=== PATIENT | female | born 1940 | race Caucasian/White ===

== ENCOUNTER → 2019-03-23 | Outpatient (CLI) | payer OTHER | END | disposition home or self-care (01) | LOC: CT 03-22 14:00 | DX: M19.012 Primary osteoarthritis, left shoulder (principal) ==

== ENCOUNTER → 2022-03-17 | Outpatient (CLI) | payer OTHER ==
[~2022-03-17] MED LIST: BENZTROPINE MESY1 MG PO; CALTRATE 600 +1 EAC1 PO; CELEXA20 MG PO; CHOLESTYRAMINE P4 GM PO; CIPRO500 MG PO; DILTIAZEM 24HR180 MG PO; DONEPEZIL HCL10 MG PO; DULOXETINE HCL30 MG PO; ELIQUIS5 M1 PO; FEXOFENADINE H180 M1 PO; FUROSEMIDE40 MG PO; HYDROCODONE-AC1 EAC1 PO; KLONOPIN2 M1 PO; MAGNESIUM400 M1 PO; METHENAMINE HIPP1 G1 PO; MUCINEX ER600 MG PO; OMEPRAZOLE40 MG PO; PERPHENAZINE4 M1 PO; PREDNISONE10 MG PO; SSD25 GM T; ZITHROMAX TRI-500 M1 PO
== END | disposition home or self-care (01) ==
LOC: ORTHO 02:00
PROVIDERS: ATTEND Orthopaedic Surgery
DX: S42.215D Unspecified nondisplaced fracture of surgical neck of left humerus, subsequent encounter for fracture with routine healing (principal); X58.XXXD Exposure to other specified factors, subsequent encounter

== ENCOUNTER 2023-05-14 11:30 | Inpatient (IN) | payer OTHER ==
[~2023-05-14] VITALS: Ht 157.5 cm; Wt 57.8 kg
[~2023-05-14 11:30] MED LIST changes: +ARICEPT10 M1 PO; +BENZTROPINE MESY2 MG PO; +CARDIZEM LA180 MG PO; +CLONAZEPAM1 MG PO; +CYMBALTA60 MG PO; +ELIQUIS2.5 M1 PO; +IRON325 M1 PO; +K-TAB20 MEQ PO; +LANTUS SOL100 UNIT/1 SC; +LASIX80 MG PO; +METHENAMINE MAND1 G2 PO; +PROTONIX40 MG PO; +VITAMIN B121000 MC1 PO; +VITAMIN D350 MCG PO; +VITAMIN E400 UNIT PO
[2023-05-14 16:00] VITALS: BP 107/46
[2023-05-14 20:00] VITALS: BP 122/86
[2023-05-15] VITALS: BP 115/57
[2023-05-15 08:00] VITALS: BP 96/53
[2023-05-15 10:23] LABS: ALKALINE PHOSPHATASE 109 U/L (46-116); BUN 22 mg/dl (9-23); CHLORIDE 107 mmol/L (98-107); SGPT/ALT 24 U/L (5-49); TOTAL PROTEIN 6.5 gm/dL (6.0-8.0)
[2023-05-15 12:00] VITALS: BP 106/73
[2023-05-15 16:00] VITALS: BP 117/55
[2023-05-15 20:00] VITALS: BP 106/76
[2023-05-16] VITALS: BP 116/83
[2023-05-16 08:00] VITALS: BP 135/69
[2023-05-16 11:49] VITALS: BP 131/96
[2023-05-16 16:00] VITALS: BP 115/91
[2023-05-16 20:00] VITALS: BP 113/59
[2023-05-17] VITALS: BP 122/48
[2023-05-17 06:39] LABS: BASO # 0.1 10*3/uL (0.0-0.1); BASO % 1.1 % (0.0-1.0); EOS # 0.2 10*3/uL (0.0-0.4); EOS % 2.5 % (1.0-4.0); HEMATOCRIT 33.3 % (37.0-47.0); LYMPH % 24.8 % (27.0-41.0); MEAN CORPUSCULAR HGB 28.7 pg (27.0-31.0); MEAN CORPUSCULAR HGB CONC 31.5 g/dl (33.0-37.0); MEAN PLATELET VOLUME 11.8 fl (9.6-12.3); MONO # 0.5 10*3/uL (0.1-1.0); NEUT # 5.3 10*3/uL (2.3-7.9); NEUT % 65.4 % (47.0-73.0); PLATELET COUNT AUTOMATED 315 10*3/uL (130-400); RED BLOOD COUNT 3.66 10*6/uL (4.10-5.10); RED CELL DISTRI WIDTH 16.9 % (0-14.5); WHITE BLOOD COUNT 8.1 10*3/uL (4.8-10.8)
[2023-05-17 08:00] VITALS: BP 130/69
[2023-05-17 12:00] VITALS: BP 122/67
== END 2023-05-17 14:15 | disposition hospice, home (50) | DRG 178 ==
LOC: 5E 11:30
PROVIDERS: Internal Medicine Critical Care Medicine; ADMIT Internal Medicine; ATTEND Internal Medicine
DX: J69.0 Pneumonitis due to inhalation of food and vomit (principal); I48.21 Permanent atrial fibrillation; F02.80 Dementia in other diseases classified elsewhere, unspecified severity, without behavioral disturbance, psychotic disturbance, mood disturbance, and anxiety; K21.9 Gastro-esophageal reflux disease without esophagitis; J44.9 Chronic obstructive pulmonary disease, unspecified; R62.7 Adult failure to thrive; G30.1 Alzheimer's disease with late onset; J15.5 Pneumonia due to Escherichia coli; Z68.23 Body mass index [BMI] 23.0-23.9, adult; Z66 Do not resuscitate; Z51.5 Encounter for palliative care

== ENCOUNTER → 2024-04-11 | Outpatient (CLI) | payer OTHER | END | disposition home or self-care (01) | LOC: ORTHO 00:28 | PROVIDERS: ATTEND Orthopaedic Surgery | DX: M89.8X1 Other specified disorders of bone, shoulder (principal); M25.512 Pain in left shoulder ==

== ENCOUNTER 2024-07-02 01:44 | Inpatient (IN) | payer OTHER ==
[~2024-07-02] VITALS: Ht 154.9 cm; Wt 54.2 kg
[~2024-07-02 01:44] MED LIST changes: +ACETAMINOPHEN650 M5 PO; +ALEVE ARTHRITI100 GM T; +ARTHRITIS PAIN150 G1 T; +ATIVAN0.5 MG PO; +CRANBERRY500 M2 PO; +CURCUMIN PHYTO500 MG PO; +DILTIAZEM HYDR180 M2 PO; +INCRUSE ELLI62.5 MCG INH; +KAPSPARGO SPRIN25 MG PO; +KLONOPIN1 M1 PO; +LASIX40 MG PO; +MARINOL PO; +METOPROLOL SUCC50 M1 PO; +NAMENDA-5 PO; +PANTOPRAZOLE SO40 MG PO; +VENT7GM INH; +VIBRA-TAB100 MG PO; +VITAMIN B12500 MC2 PO
[2024-07-02] MEDS ORDERED: ACETAMINOPHEN 650 MG SUPP R PRN ×2 (02:05→02:25)
[2024-07-02] MEDS ORDERED: Ondansetron Hydrochloride 4 MG/2 ML VIAL IV PRN (02:05)
[2024-07-02] MEDS ORDERED: ACETAMINOPHEN 325 MG TAB PO PRN (02:05)
[2024-07-02] MEDS ORDERED: ATROPINE SULFATE 1% 2 ML BOTTLE SL PRN (02:10)
[2024-07-02] MEDS ORDERED: MORPHINE Sulfate 2 MG/ML SYR IV PRN (02:15)
[2024-07-02] MEDS ORDERED: LORazepam 2 MG/ML VIAL IV SCH (02:15)
[2024-07-02] MEDS ORDERED: LORazepam 2 MG/ML VIAL IV PRN (02:15)
[2024-07-02] MEDS ORDERED: BISACODYL 10 MG SUPP R PRN (02:25)
[2024-07-02] MEDS ORDERED: SODIUM CHLORIDE 0.9% 1,000 ML IV SCH (04:50)
[2024-07-02] MEDS ORDERED: MORPHINE Sulfate 50 MG in SODIUM CHLORIDE 0.9% 45 ML IV SCH (07:10)
[2024-07-02 08:00] VITALS: BP 106/59
[2024-07-02 09:50] VITALS: BP 87/50
[2024-07-02 12:00] VITALS: BP 90/64
[2024-07-02 16:00] VITALS: BP 104/64
[2024-07-02 20:00] VITALS: BP 94/62
[2024-07-03] VITALS: BP 116/64
[2024-07-03] MEDS ORDERED: Water, Sterile 10 ML VIAL IV SCH (03:55)
[2024-07-03] MEDS ORDERED: Water, Sterile 10 ML VIAL ONE (04:12)
[2024-07-03 08:00] VITALS: BP 106/62
[2024-07-03] MEDS ORDERED: LORazepam 1 MG TAB PO SCH ×2 (12:00→16:00)
[2024-07-03] MEDS ORDERED: Morphine Sulfate 10 MG/0.5 ML CONCENTRATE ORAL SYRINGE PO SCH (12:00)
[2024-07-03] MEDS ORDERED: LORazepam 2 MG/ML VIAL IV PRN (15:50)
[2024-07-03 16:00] VITALS: BP 111/78
[2024-07-03 20:00] VITALS: BP 91/46
[2024-07-04] VITALS: BP 126/77
[2024-07-04 08:00] VITALS: BP 116/65
[2024-07-04 16:00] VITALS: BP 115/80
[2024-07-04] MEDS ORDERED: MORPHINE Sulfate 50 MG in SODIUM CHLORIDE 0.9% 45 ML IV SCH (16:00)
[2024-07-04] MEDS ORDERED: SODIUM CHLORIDE 0.9% 500 ML IV ONE (16:20)
[2024-07-04 20:00] VITALS: BP 110/78
[2024-07-05] VITALS: BP 108/65
[2024-07-05] MEDS ORDERED: SODIUM CHLORIDE 0.9% 1,000 ML IV SCH (09:50)
[2024-07-05 20:00] VITALS: BP 99/51
[2024-07-06 08:00] VITALS: BP 146/70
[2024-07-07 08:00] VITALS: BP 103/63
[2024-07-07 16:00] VITALS: BP 83/50
[2024-07-07] MEDS ORDERED: MORPHINE Sulfate 2 MG/ML SYR IV PRN (16:06)
== END 2024-07-08 13:11 | DRG 177 ==
LOC: 4E 01:44 → 5E 09:12 → 4E 07-08 13:11
PROVIDERS: ADMIT Student in an Organized Health Care Education/Training Program; ATTEND Student in an Organized Health Care Education/Training Program
PROC: 5A0935A Assistance with Respiratory Ventilation, Less than 24 Consecutive Hours, High Flow/Velocity Cannula (ICD-10-PCS; principal; 2024-07-02)
DX: J69.0 Pneumonitis due to inhalation of food and vomit (principal); J96.01 Acute respiratory failure with hypoxia; F03.918 Unspecified dementia, unspecified severity, with other behavioral disturbance; I50.32 Chronic diastolic (congestive) heart failure; E44.0 Moderate protein-calorie malnutrition; I48.11 Longstanding persistent atrial fibrillation; R65.10 Systemic inflammatory response syndrome (SIRS) of non-infectious origin without acute organ dysfunction; Z51.5 Encounter for palliative care; I48.91 Unspecified atrial fibrillation; J44.9 Chronic obstructive pulmonary disease, unspecified; G20.A1 Parkinson's disease without dyskinesia, without mention of fluctuations; E87.6 Hypokalemia; G20.B2 Parkinson's disease with dyskinesia, with fluctuations; D64.9 Anemia, unspecified; D50.9 Iron deficiency anemia, unspecified; Z66 Do not resuscitate; R31.9 Hematuria, unspecified; R80.9 Proteinuria, unspecified; K21.9 Gastro-esophageal reflux disease without esophagitis; Z96.653 Presence of artificial knee joint, bilateral; F41.9 Anxiety disorder, unspecified; Z90.710 Acquired absence of both cervix and uterus; Z68.22 Body mass index [BMI] 22.0-22.9, adult